=== PATIENT | female | born 1955 | race Two or more races ===

== ENCOUNTER 2021-02-19 06:10 | Day surgery (SDC) | payer OTHER ==
[~2021-02-19 06:10] MED LIST: LEVOTHYROXINE25 MCG PO; LOSART PO
[2021-02-19] MEDS ORDERED: NEURONTIN300 MG PO (11:33)
[2021-02-19] MEDS ORDERED: PERCOCET 5-3251 EACH PO (11:33)
== END 2021-02-19 17:10 | disposition home or self-care (01) ==
LOC: CIR.AMB 06:10
PROVIDERS: ATTEND Surgery
DX: K64.3 Fourth degree hemorrhoids (principal); K64.4 Residual hemorrhoidal skin tags; K64.8 Other hemorrhoids; Z20.822 Contact with and (suspected) exposure to COVID-19